=== PATIENT | female | born 1995 | race Native Hawaiian/Other Pacific Islander ===

== ENCOUNTER 2022-03-24 18:31 | Emergency (ER) | payer MEDICAID ==
[~2022-03-24] VITALS: Ht 170 cm; Wt 118.5 kg
[~2022-03-24 18:31] MED LIST: ACHD5005 PO; BENZ78AE5 TP; CHOL2000 PO; CPR500T PO; CYCL10TA9 PO; DOCU-239 PO; FERR-84 PO; FERR325T18 PO; IBUP-844 PO; PHEN100T17 PO; SULF-222 PO; TRAM50TA2 PO
[2022-03-24 18:38] VITALS: BP 147/106
--- NOTE | 2022-03-24 18:54 | ED GU-Female ---
General Chief Complaint: - Reproductive Stated Complaint: VAGINAL BLEEDING Nursing Triage Note: Pt states that she has been having vaginal bleeding for 2 months, worse the last 3 days. She is now bleeding through a pad an hour for the last 3 days. Source: patient History of Present Illness Date Seen by Provider: Mar 24, 2022 Time Seen by Provider: 18:44 Initial Comments PT ARRIVES VIA POV FROM HOME STATES SHE HAS HAD IRREGULAR MENSTRUAL BLEEDING HER ENTIRE LIFE, SINCE SHE FIRST STARTED HAVING PERIODS STATES SHE HAD A D&C 2 YEARS AGO FOR IRREGULAR BLEEDING STATES SHE HAS BEEN BLEEDING FOR THE LAST 2 MONTHS, BUT BLEEDING HAS BEEN WORSE THE LAST 3 DAYS STATES SHE IS GOING THROUGH "1 PAD AN HOUR" FOR THE LAST 3 DAYS--STATES SHE RAN OUT OF THICK PADS AND IS NOW USING THIN PADS STATES SHE HAS USED ABOUT 7 OR 8 THIN PADS TODAY C/O CRAMPING STATES SHE IS PASSING CLOTS C/O MILD NAUSEA, NO VOMITING C/O MILD DIZZINESS TOOK IBUPROFEN 600 MG AROUND NOON FOR CRAMPING PT IS NOT ON ANY CONTROL HAS NOT DONE A HOME TEST PT IS DELIVERED SEPTEMBER 26, 2020 SYMPTOMS ARE NO DIFFERENT TODAY IN ANY WAY HAS NOT ATTEMPTED TO SEEK CARE UNTIL [facility]. NO CHRONIC MEDICAL PROBLEMS ' PCP: [facility]---GOES TO [facility] IN [place] [facility] DIVING SUPERVISOR: DR. GALLARDO. Allergies and Home Medications Allergies Coded Allergies: No Known Drug Allergies (Unverified , 10/02/20) Patient Home Medication List Home Medication List Reviewed: Yes Benzocaine/Menthol (Dermoplast Pain Relieving [place]) 78 Gm Aerosol, 56 ML TP UD PRN for PAIN- SEE INSTRUCTIONS Prescribed by: ISAMAR GALLARDO on 09/26/20 1523 Cholecalciferol (Vitamin D3) (Vitamin D) 2,000 Unit Capsule, 2,000 UNIT PO DAILY, (Reported) Entered as Reported by: ROSE BARNES on 04/18/19 1556 Docusate Sodium (Dok) 100 Mg Capsule, 100 MG PO BID PRN for CONSTIPATION-1ST LINE Prescribed by: ISAMAR GALLARDO on 09/26/20 1523 Ferrous Sulfate (Iron) 325 Mg Tablet, 325 MG PO DAILY, (Reported) Entered as Reported by: ROSE BARNES on 04/18/19 1556 Ferrous Sulfate (Ferrous Sulfate) 325 Mg Tablet, 325 MG PO DAILY Prescribed by: ISAMAR GALLARDO on 09/26/201522 Hydrocodone/Acetaminophen (Hydrocodone-Acetamin 5-325 mg) 1 Each Tablet, 1 TAB PO Q4H PRN for PAIN-MODERATE (5-7) Prescribed by: ISAMAR GALLARDO on 09/26/201522 Ibuprofen (Ibu) 600 Mg Tablet, 600 MG PO Q6HR Prescribed by: ISAMAR GALLARDO on 09/26/201522 Ondansetron (Ondansetron Odt) 8 Mg Tab.rapdis, 8 MG PO Q6H Prescribed by: MALACHI GOOD on 03/24/221946 [[facility]] Prescribed by: MALACHI GOOD on 03/24/221946 Review of Systems Review of Systems Constitutional: see HPI, dizziness EENTM: no symptoms reported Respiratory: no symptoms reported Cardiovascular: no symptoms reported Gastrointestinal: see HPI, abdominal pain, loss of appetite, nausea Genitourinary: see HPI, other (CRAMPING, BLEEDING) Musculoskeletal: no symptoms reported Skin: no symptoms reported Psychiatric/Neurological: No Symptoms Reported Endocrine: No Symptoms Reported Hematologic/Lymphatic: No Symptoms Reported Past Tetadtl-Vnchea-Zrzqpb Hx Patient Social History Tobacco Use?: No Use of E-Cig and/or Vaping dev: No Substance use?: No Alcohol Use?: No Pt feels they are or have been: No Immunizations Up To Date Influenza Vaccine Up-to-Date: No; Not Current Past Medical History Surgeries: Yes (D&C) Tonsillectomy Respiratory: No Cardiac: No Neurological: No : No Last Menstrual Period: January 23, 2022 Hx : 2 Hx Para: 2 Hx Total # of Abortions (Sp): 0 Reproductive Disorders: Yes (DUB) Female Reproductive Disorders: Menstrual Problems Genitourinary: No Gastrointestinal: No Musculoskeletal: No Endocrine: No HEENT: No Cancer: No Psychosocial: No Integumentary: No Blood Disorders: No Family Medical History Diabetes mellitus 19 MOTHER FH: bipolar disorder 19 MOTHER FH: epilepsy 19 MOTHER FHx: depression 19 MOTHER Physical Exam Vital Signs Vital Signs - First Documented Capillary Refill : Less Than 3 Seconds Height, Weight, BMI Height: '" Weight: lbs. oz. kg; 41.00 BMI Method: General Appearance: WD/WN, no apparent distress, obese HEENT: PERRL/EOMI; No pale conjunctivae (R), No pale conjunctivae (L) Neck: normal inspection Cardiovascular: regular rate, rhythm, no murmur Respiratory: normal breath sounds, no respiratory distress, no accessory muscle use Gastrointestinal: normal bowel sounds, soft Pelvic: normal external exam, no cerv. motion tender, no masses; No tender adnexa; tender uterus, vaginal bleeding (MODERATE AMOUNT OF BLOOD IN VAGINA, NO CLOTS NOTED AT THIS TIME. ) Extremities: normal inspection, normal capillary refill Neurologic/Psychiatric: no motor/sensory deficits, alert, normal mood/affect, oriented x 3 Skin: normal color, warm/dry; No pallor Progress/Results/Core Measures Suspected Sepsis SIRS Temperature: Pulse: 83 Respiratory Rate: 18 Laboratory Tests 03/24/22 18:58: White Blood Count 7.0 Blood Pressure 147 /106 Mean: 120 Laboratory Tests 03/24/22 18:58: Creatinine 0.77, INR Comment 1.0, Platelet Count 389 Results/Orders Lab Results Laboratory Tests Test 03/24/22 18:58 03/24/22 19:15 Range/Units White Blood Count 7.0 4.3-11.0 10^3/uL Red Blood Count 4.14 3.80-5.11 10^6/uL Hemoglobin 9.7 L 11.5-16.0 g/dL Hematocrit 32 L 35-52 % Mean Corpuscular Volume 76 L 80-99 fL Mean Corpuscular Hemoglobin 23 L 25-34 pg Mean Corpuscular Hemoglobin Concent 31 L 32-36 g/dL Red Cell Distribution Width 17.2 H 10.0-14.5 % Platelet Count 389 130-400 10^3/uL Mean Platelet Volume 9.6 9.0-12.2 fL Immature Granulocyte % (Auto) 0 % Neutrophils (%) (Auto) 56 42-75 % Lymphocytes (%) (Auto) 31 12-44 % Monocytes (%) (Auto) 10 0-12 % Eosinophils (%) (Auto) 2 0-10 % Basophils (%) (Auto) 0 0-10 % Neutrophils # (Auto) 3.9 1.8-7.8 10^3/uL Lymphocytes # (Auto) 2.2 1.0-4.0 10^3/uL Monocytes # (Auto) 0.7 0.0-1.0 10^3/uL Eosinophils # (Auto) 0.2 0.0-0.3 10^3/uL Basophils # (Auto) 0.0 0.0-0.1 10^3/uL Immature Granulocyte # (Auto) 0.0 0.0-0.1 10^3/uL Prothrombin Time 13.1 12.2-14.7 SEC INR Comment 1.0 0.8-1.4 Activated Partial Thromboplast Time 28 24-35 SEC Sodium Level 139 135-145 MMOL/L Potassium Level 4.2 3.6-5.0 MMOL/L Chloride Level 106 98-107 MMOL/L Carbon Dioxide Level 22 21-32 MMOL/L Anion Gap 11 5-14 MMOL/L Blood Urea Nitrogen 8 7-18 MG/DL Creatinine 0.77 0.60-1.30 MG/DL Estimat Glomerular Filtration Rate 108 BUN/Creatinine Ratio 10 Glucose Level 121 H 70-105 MG/DL Calcium Level 8.7 8.5-10.1 MG/DL TSH [place] Testing 3.76 0.35-4.94 UIU/ML Urine Color YELLOW Urine Clarity CLOUDY Urine pH 6.0 5-9 Urine Specific [place] 1.020 1.016-1.022 Urine Protein TRACE H NEGATIVE Urine Glucose (UA) NEGATIVE NEGATIVE Urine Ketones NEGATIVE NEGATIVE Urine Nitrite NEGATIVE NEGATIVE Urine Bilirubin NEGATIVE NEGATIVE Urine Urobilinogen 0.2 < = 1.0 MG/DL Urine Leukocyte Esterase TRACE H NEGATIVE Urine RBC (Auto) 3+ H NEGATIVE Urine RBC >100 H /HPF Urine WBC 10-25 H /HPF Urine Squamous Epithelial Cells 0-2 /HPF Urine Renal Epithelial Cells NONE /HPF Urine Crystals NONE /LPF Urine Bacteria NEGATIVE /HPF Urine Casts NONE /LPF Urine Mucus NEGATIVE /LPF Urine Culture Indicated NO My Orders Orders - MALACHI GOOD DO Ed Iv/Invasive Line Start (03/24/22 18:49) Urine Bedside (03/24/22 18:49) Basic Metabolic Panel (03/24/22 18:49) Cbc With Automated Diff (03/24/22 18:49) Protime With Inr (03/24/22 18:49) Partial Thromboplastin Time (03/24/22 18:49) Thyroid Analyzer (03/24/22 18:49) Ua Culture If Indicated (03/24/22 18:49) Ed Iv/Invasive Line Start (03/24/22 18:49) Ns Iv 1000 Ml (Sodium Chloride 0.9%) (03/24/22 19:00) Vital Signs/I&O 03/24/22 03/24/22 03/24/22 18:38 18:38 20:00 Temp 36.4 36.4 Pulse 83 83 78 Resp 18 18 16 B/P (MAP) 147/106 (120) 147/106 119/70 Pulse Ox 99 99 O2 Delivery Room Air Room Air Room Air Capillary Refill : Less Than 3 Seconds Blood Pressure Mean: 120 Progress Note : Progress Note DID NOT SATURATE ANY PADS DURING ER STAY, BUT DID PASS SOME MODERATE SIZED CLOTS INTO TOILET ON OBTAINING UA. Departure Impression Primary Impression: DUB (dysfunctional uterine bleeding) Additional Impressions: Menometrorrhagia Mild anemia Disposition: HOME, SELF-CARE Condition: Stable Departure-Patient Inst. Decision time for Depature: 19:42 Referrals: NO,LOCAL PHYSICIAN (PCP) Primary Care Physician ISAMAR GALLARDO DO (Family) Primary Care Physician Patient Instructions: Heavy Periods (DC), Absent or Irregular Periods Add. Discharge Instructions: HOME, REST TAKE MULTIVITAMIN WITH IRON DAILY TAKE STOOL SOFTENER NEEDED IF VITAMINS CAUSE CONSTIPATION TYLENOL 1 GRAM + MOTRIN 800 MG 4 TIMES A DAY NEEDED FOR PAIN/CRAMPING FOLLOW UP WITH DR. GALLARDO NEXT WEEK--CALL IN THE MORNING TO SCHEDULE APPOINTMENT All discharge instructions reviewed with patient and/or family. Voiced understanding. Scripts [[facility]] No Conflict Check Prov: MALACHI GOOD DO 03/24/22 Ondansetron (Ondansetron Odt) 8 Mg Tab.rapdis 8 MG PO Q6H, #10 TAB Prov: MALACHI GOOD DO 03/24/22 MALACHI GOOD DO Mar 24, 2022 18:54
[2022-03-24] MEDS ORDERED: NS IV 1000 ML 1,000 ML IV SCH (19:00)
[2022-03-24 19:06] LABS: BASOPHILS % (AUTO) 0 % (0-10); EOSINOPHILS # (AUTO) 0.2 10^3/uL (0.0-0.3); EOSINOPHILS % (AUTO) 2 % (0-10); HEMATOCRIT 32 % (35-52); HEMOGLOBIN 9.7 g/dL (11.5-16.0); LYMPHOCYTES # (AUTO) 2.2 10^3/uL (1.0-4.0); LYMPHOCYTES % (AUTO) 31 % (12-44); MEAN CORPUSCULAR HEMOGLOBIN 23 pg (25-34); MEAN CORPUSCULAR HGB CONC 31 g/dL (32-36); MEAN CORPUSCULAR VOLUME 76 fL (80-99); MEAN PLATELET VOLUME 9.6 fL (9.0-12.2); MONOCYTES # (AUTO) 0.7 10^3/uL (0.0-1.0); MONOCYTES % (AUTO) 10 % (0-12); NEUTROPHILS # (AUTO) 3.9 10^3/uL (1.8-7.8); NEUTROPHILS % (AUTO) 56 % (42-75); PLATELET COUNT 389 10^3/uL (130-400)
[2022-03-24 19:18] LABS: BILIRUBIN,URINE NEGATIVE (NEGATIVE); CLARITY,URINE CLOUDY; COLOR,URINE YELLOW; GLUCOSE, URINE (UA) NEGATIVE (NEGATIVE); KETONES,URINE NEGATIVE (NEGATIVE); LEUKOCYTE ESTERASE ,URINE TRACE (NEGATIVE); NITRITE,URINE NEGATIVE (NEGATIVE); PROTEIN,URINE TRACE (NEGATIVE)
[2022-03-24 19:21] LABS: PROTHROMBIN TIME PATIENT 13.1 SEC (12.2-14.7)
[2022-03-24 19:24] LABS: POTASSIUM 4.2 MMOL/L (3.6-5.0)
[2022-03-24 19:25] LABS: CALCIUM 8.7 MG/DL (8.5-10.1)
[2022-03-24 19:25] LABS: BACTERIA,URINE NEGATIVE /HPF; RBC,URINE >100 /HPF; SQUAMOUS EPITHELIAL CELL,UR 0-2 /HPF
[2022-03-24 19:29] LABS: CREATININE SERUM 0.77 MG/DL (0.60-1.30)
[2022-03-24] MEDS ORDERED: ORTHO NOVUM (19:47)
[2022-03-24] MEDS ORDERED: ONDA8TAB13 PO (19:47)
[2022-03-24 19:52] LABS: TSH (THYROID ANALYZER) 3.76 UIU/ML (0.35-4.94)
== END 2022-03-24 20:09 | disposition home or self-care (01) ==
LOC: EDUNIT# 18:31 → ER 18:35
DX: N92.1 Excessive and frequent menstruation with irregular cycle (principal); D50.0 Iron deficiency anemia secondary to blood loss (chronic); Z28.310 Unvaccinated for COVID-19
CPT/HCPCS: 36415; 80048; 81000; 84443; 84703; 85025; 85610; 85730